=== PATIENT | female | born 1990 | race African-American/Black ===

== ENCOUNTER 2023-04-28 13:15 | Emergency (ER) | payer BC, SELFPAY ==
[2023-04-28] VITALS (34 sets, daily range): BP systolic 126–156; BP diastolic 91–104; PULSE 74–89; RESP 12–24; O2SAT 91–100
--- NOTE | ~2023-04-28 | XR_ITS ---
EXAMINATION: XR chest 2V DATE: 04/28/2023 14:53 INDICATION: Transient alteration of awareness TECHNIQUE: Frontal and lateral views of the chest are obtained COMPARISON: None available FINDINGS: The lungs are free of acute opacities. No pleural effusion or pneumothorax. The heart size is normal. There are changes of prior cardiac surgery. There is mild thoracic spondylosis. IMPRESSION: 1. No acute cardiopulmonary abnormality. Reviewed, dictated and finalized at location F.
--- NOTE | ~2023-04-28 | CT_ITS ---
EXAMINATION: CTA chest PE protocol DATE: 04/28/2023 16:08 INDICATION: Syncope. Elevated d-dimer. TECHNIQUE: Computed tomography angiography (CTA) of the chest was performed with 100 mL Omnipaque-350 intravenous contrast timed to evaluate the pulmonary arteries. Coronal maximum intensity projection 3D-reconstructions were created by the technologist. Automated exposure control and iterative reconst ruction technique were employed. Exam dose: 318.28 mGy-cm total exam DLP. COMPARISON: 04/28/2023 2 view chest FINDINGS: There is diagnostic contrast enhancement of the pulmonary arteries and no evidence of pulmo nary embolism. Status post sternotomy. No pericardial or pleural effusion. No thoracic aortic aneurysm or dissection is evident. No hilar or mediastinal mass lesion or lymphadenopathy. Scattered areas of atelectasis, primarily in the lower lobes, right greater than left. Normal morphol ogy of the adrenal glands. Included skeletal structures are unremarkable. IMPRESSION: Scattered bilateral areas of atelectasis, more prominent in the lower lobes, right great er than left Status post sternotomy No evidence of pulmonary embolism Reviewed, dictated and finalized at Location A. Reviewed, dictated and finalized at location B. IMPRESSION: Scattered bilateral areas of atelectasis, more prominent in the lo wer lobes, right greater than left Status post sternotomy No evidence of pulmonary embolism
--- NOTE | 2023-04-28 14:20 | ECG_ITS ---
Measurements Intervals [place] Rate: 84 P: 63 NE: 229 QRS: 15 QRSD: 83 T: 30 QT: 372 QTc: 441 Interpretive Statements SINUS RHYTHM WITH FIRST DEGREE AV BLOCK POSSIBLE LEFT ATRIAL ENLARGEMENT BORDERLINE R WAVE PROGRESSION, ANTERIOR LEADS CONSIDER INFERIOR INFARCT, AGE INDETERMINATE BASELINE ARTIFACT- I, II, AVR, AVL, AVF ABNORMAL ECG NO PREVIOUS ECG AVAILABLE FOR COMPARISON Electronically Signed On 04-28-2023 15:03:20 CDT by Jordan Mcneil D.O.
[2023-04-28 14:48] LABS: Glucose Point of Care 94 mg/dl (65-105)
[2023-04-28 14:49] LABS: Basophils Percent Auto 0.3 % (0.2-1.2); Eosinophils Absolute Auto 0.1 K/mm3 (0-0.3); Eosinophils Percent Auto 1.1 % (0-4.4); Hematocrit 37.5 % (37.0-47.0); Hemoglobin 12.1 g/dL (12.0-15.0); Immature Granulocyte Absolute 0.02 K/mm3 (0.00-0.031); Immature Granulocyte Percent A 0.2 % (0-0.5); Lymphocytes Absolute Auto 2.85 K/mm3 (0.9-3.2); Lymphocytes Percent Auto 31.5 % (18.3-44.2); Mean Corpuscular HGB Conc 32.3 g/dl (32-36); Mean Corpuscular Hemoglobin 26.8 pg (26-34); Mean Corpuscular Volume 83.1 fl (80-100); Mean Platelet Volume 8.4 fl (7.4-10.4); Monocytes Percent Auto 10.6 % (2.6-8.5); Neutrophils Absolute Auto 5.1 K/mm3 (1.3-6.7); Neutrophils Percent Auto 56.3 % (45.5-73.1); Platelet Count Result 318 k/mm3 (150-375); Red Blood Count 4.51 M/mm3 (4.2-5.4)
[2023-04-28] MEDS: SODIUM CHLORIDE 0.9% IV 1,000 ML 999 ML IV CONT (15:01)
[2023-04-28 15:28] LABS: Appearance Urine Clear (Clear); Bacteria Urine 2+ /hpf; Bilirubin Urine Negative (Negative); Blood Urine Negative (Negative); Color Urine Dark Yellow (Yellow); Glucose Urine UA Negative (Negative); Ketones Urine Trace mg/dL (Negative); Leukocyte Esterase Ur Trace LEU/UL (Negative); Need Manual Microscopic Reviewed; Nitrate Urine Negative (Negative); Protein Urine Trace mg/dL (Negative); Specific Grav Ur 1.024 (1.001-1.035); Squamous Epithelial Cell Urine Occasional /hpf (Few); WBC Urine 0-5 /hpf (0-3)
[2023-04-28 15:30] LABS: Add Urine Microscopic? YES
[2023-04-28 15:44] LABS: Alanine Aminotransferase 16 U/L (6-35); Albumin Level 3.9 g/dL (3.5-5.1); Alkaline Phosphatase 82 U/L (38-126); Anion Gap 3 mmol/L (8-16); Aspartate Amino Transferase 22 U/L (14-36); Bilirubin,Total 0.6 mg/dL (0.2-1.3); Blood Urea Nitrogen 17 mg/dL (7-17); Calcium 8.3 mg/dL (8.4-10.2); Carbon Dioxide 27 mmol/L (22-30); Chloride 105 mmol/L (98-107); Estimated Glomerular Filt Rate > 60; Glucose 105 mg/dL (65-110); Potassium 4.5 mmol/L (3.4-5.0); Sodium 135 mmol/L (137-145)
[2023-04-28 15:48] LABS: D Dimer 1.25 ug/mL (<0.48)
--- NOTE | 2023-04-28 16:47 | ED.GENADULT ---
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 The patient states she was in her normal state of health, when after playing pickleball, she felt somewhat lightheaded. She/recall stepping into an elevator and waking up on the ground. She has no other complaints at this time. She denies chest pain, shortness of breath, palpitations, lower extremity swelling or bleeding. She states she was started on prazosin by her merchandise collector with her 1st dose yesterday. Related Data Allergies Allergy/AdvReac Type Severity Reaction Status Date / Time No Known Allergies Allergy Verified 04/28/23 13:42 Review of Systems Review of Systems: CONSTITUTIONAL: Denies fever, chills, or sweats. CARDIOVASCULAR: Denies chest pain, palpitations, or edema. RESPIRATORY: Denies cough or dyspnea. GASTROINTESTINAL: Denies abdominal pain, nausea, vomiting, or diarrhea. GENITOURINARY: LMP 2 months ago, on control. Denies dysuria or hematuria. SKIN: Denies rash or itching. MUSCULOSKELETAL: Denies back pain, joint pain, or myalgia. NEUROLOGIC: Denies headache, numbness, dizziness, or weakness. PSYCHIATRIC: Denies anxiety or depression. PMFSH Past Medical History Medical History (Updated 04/28/23 @ 16:52 by Sanchez Lomeli MD) Tricuspid valve disorder Surgical History Surgical History (Updated 04/28/23 @ 16:52 by Sanchez Lomeli MD) Tricuspid valve replaced Social History Social History (Updated 04/28/23 @ 16:52 by Sanchez Lomeli MD) Smoking status: Never smoker Alcohol intake: never Substance use: never Exam Narrative: GENERAL: Well-developed, well-nourished, and in no acute distress. HEAD: Normocephalic, atraumatic. EYES: PERRLA and EOMI. ENT: Nares clear, no rhinorrhea or epistaxis. Mucous membranes dry. Oropharynx without tonsillar hypertrophy exudate or other lesions. NECK: Supple. No adenopathy or masses. No carotid bruits or JVD CHEST: Clear to auscultation. No respiratory distress. No wheezes rales or rhonchi HEART: Regular rate and rhythm. No murmur heard. Normal peripheral pulses. ABDOMEN: Soft, nontender, nondistended, normal active bowel sounds. EXTREMITIES: Normal range of motion. No edema. SKIN: Warm, dry, no rash. NEURO: Alert and oriented x3. No focal deficit. Moving all 4 limbs spontaneously PSYCH: Normal mood and affect. Course Course Emergency Course: 16:45 - CBC unremarkable, CMP demonstrates mild hypocalcemia with calcium of 8.3 but is otherwise unremarkable. UA not concerning for urinary tract infection. test negative. D-dimer positive. Chest x-ray did not concerning for acute cardiopulmonary process. CT chest not concerning for PE and demonstrates changes consistent with atelectasis. The patient states she felt improved after IV fluids. Nursing staff notes the patient has ambulated several times in the emergency department without assistance and with steady gait. Will discharge with recommendation for primary care and cardiology follow-up. I advised the patient, if she has recurrent episodes of lightheadedness, to hold her pre is a sin. Vital Signs Vital signs: Vital Signs Pulse Rate 87 04/28/23 13:25 Respiratory Rate 18 04/28/23 13:25 Pulse Oximetry 100 04/28/23 13:25 Pulse Rate 82 04/28/23 16:46 Respiratory Rate 17 04/28/23 16:46 Blood Pressure 134/97 H 04/28/23 16:46 Pulse Oximetry 99 04/28/23 16:46 Oxygen Delivery Room Air 04/28/23 13:[address] [facility] Narrative Medical decision making narrative: Plan: Labs, IV fluids, EKG, imaging, reassess Differential Diagnosis Differential Diagnosis: Syncope, medication side effect, anem
== END 2023-04-28 17:01 | disposition home or self-care (01) ==
PROVIDERS: Emergency Provider Preventive Medicine Aerospace Medicine
DX: R55 Syncope and collapse (principal); I07.9 Rheumatic tricuspid valve disease, unspecified; Z95.2 Presence of prosthetic heart valve; I44.0 Atrioventricular block, first degree; R94.31 Abnormal electrocardiogram [ECG] [EKG]
CPT/HCPCS: 36415; 71046; 71275; 80053; 81025; 82948; 85025; 85380; 93005; 96360; 99284; J7030; Q9967